=== PATIENT | female | born 1960 | race African-American/Black ===

== ENCOUNTER 2020-09-10 14:23 | Emergency (ER) | payer OTHER ==
[~2020-09-10] VITALS: Ht 157.5 cm; Wt 86.2 kg
[2020-09-10 15:20] VITALS: BP 170/94
[2020-09-10] MEDS ORDERED: TETRACAINE HCL 0.5% OPTH(EYE) SOLN 4ML ONE (15:38)
[2020-09-10] MEDS ORDERED: TETRACAINE HCL 0.5% OPTH(EYE) SOLN 4ML RIGHTEYE ONE ×2 (15:45)
== END 2020-09-10 16:58 | disposition home or self-care (01) ==
LOC: ER 14:23
DX: H10.31 Unspecified acute conjunctivitis, right eye (principal)

== ENCOUNTER 2023-04-25 10:54 | Inpatient (IN) | payer OTHER ==
[~2023-04-25] VITALS: Ht 157.5 cm; Wt 81.5 kg
[2023-04-25 11:17] LABS: Basophils # (auto) 0.1 10 ^3/uL (0-0.2); Basophils % (auto) 1.6 % (0.0-2.0); Eosinophils # (auto) 0.1 10 ^3/uL (0-0.8); Eosinophils % (auto) 0.8 % (0.0-7.0); Hematocrit 41.8 % (36.0-46.0); Hemoglobin 14.4 g/dL (12.2-16.2); Lymphocytes # (auto) 2.7 10 ^3/uL (0.4-5.4); Lymphocytes % (auto) 41.1 % (10.0-50.0); Mean Corpuscular Hemoglobin 30.9 pg (28.0-32.0); Mean Corpuscular Hgb Conc. 34.4 g/dL (32.0-36.0); Mean Corpuscular Volume 89.8 fL (80.0-100.0); Monocytes # (auto) 0.5 10 ^3/uL (0-1.3); Neutrophils # (auto) 3.3 10 ^3/uL (1.6-8.6); Neutrophils % (auto) 49.5 % (37.0-80.0); Nucleated Red Blood Cells % 0.3 %; Red Blood Cells 4.65 10^6/uL (4.0-5.20); Red Cell Distribution Width 15.3 % (11.8-14.3); White Blood Cell 6.7 10^3/uL (4.4-10.8)
[2023-04-25] MEDS ORDERED: TETRACAINE HCL 0.5% OPTH(EYE) SOLN 4ML EACHEYE ONE (11:30)
[2023-04-25] MEDS ORDERED: FLUORESCEIN SOD OPTH TEST STRIP EACHEYE ONE (11:30)
[2023-04-25 11:34] LABS: INR 0.91 (0.9-1.15)
[2023-04-25 11:39] LABS: Anion Gap 11 (5-15); Blood Alcohol < 3.0 mg/dL (0-5); Calcium 9.2 mg/dL (8.5-10.1); Carbon Dioxide 23 mmol/L (21-32); Chloride 110 mmol/L (98-107); Glucose 107 mg/dL (74-106); Lipase 95 U/L (73-393); Sodium 144 mmol/L (136-145)
[2023-04-25 11:45] LABS: Alanine Aminotransferase 18 U/L (13-56); Alkaline Phosphatase 69 U/L (45-117); Aspartate Aminotransferase 14 U/L (15-37); BUN/Creatinine Ratio 11.8 (10.0-20.0); Bilirubin, Total 0.5 mg/dL (0.2-1.0); Blood Urea Nitrogen 9 mg/dL (7-18); GFR African American 99 mL/min; GFR Non-African American 82 mL/min; Total Protein 7.6 g/dL (6.4-8.2)
[2023-04-25] MEDS ORDERED: hydrALAZINE HCL 20 MG/ML VL IV ONE ×2 (14:00→15:15)
[2023-04-25] MEDS ORDERED: IOHEXOL 350 MG/ML 100ML IJ ONE (15:08)
[2023-04-25 15:47] LABS: Urine Bacteria FEW /hpf (None Seen); Urine Blood TRACE /uL (Negative); Urine Specific Gravity 1.013 (1.001-1.035); Urine WBC 1 /hpf (0 - 5)
[2023-04-25 16:36] LABS: Alcohol, Urine < 3.0 mg/dL (0-10); Barbiturate Scree,Urine NEGATIVE (NEGATIVE); Benzodiazephine Screen, Urine NEGATIVE (NEGATIVE); Cannabinoid Screen, Urine POSITIVE (NEGATIVE); Cocaine Screen, Urine NEGATIVE (NEGATIVE)
[2023-04-25 16:44] LABS: Amphetamine Screen, Urine NEGATIVE (NEGATIVE); Opiate Scree,Urine NEGATIVE (NEGATIVE); Phencyclidine Screen, Urine NEGATIVE (NEGATIVE)
[2023-04-25] MEDS ORDERED: NITROGLYCERIN 0.4 MG SL TAB SL PRN (17:00)
[2023-04-25] MEDS ORDERED: MORPHINE SULFATE INJ 2 MG/ml SYRG IV PRN (17:00)
[2023-04-25] MEDS: LOSARTAN POTASSIUM 25 MG TAB PO SCH (17:30)
[2023-04-25] MEDS: amLODIPine BESYLATE 5 MG TAB PO SCH (17:30)
[2023-04-25] MEDS: ENOXAPARIN SOD 40 MG/0.4 ML SYRINGE SC SCH (17:31)
[2023-04-25] MEDS ORDERED: LORazepam 2MG/ML-1ML VIAL IV PRN (17:45)
[2023-04-25] MEDS: CIPROFLOXACIN 0.3%OPTH(EYE) SOL 5ML EACHEYE SCH ×2 (17:57→22:19)
[2023-04-25 18:35] LABS: Cholesterol 247 mg/dL (< 200); HDL Cholesterol 73 mg/dL (40-59); LDL Cholesterol 168 mg/dL (< 100); Triglycerides 55 mg/dL (< 150)
[2023-04-25] MEDS: ATORVASTATIN 20 MG TAB PO SCH (22:18)
[2023-04-25] MEDS: PHENYTOIN SODIUM 50 MG/ML 2ML VIAL IV SCH (22:19)
[2023-04-26] MEDS: CIPROFLOXACIN 0.3%OPTH(EYE) SOL 5ML EACHEYE SCH ×6 (02:10→22:13)
[2023-04-26 03:30] LABS: Urine Bacteria NONE SEEN /hpf (None Seen); Urine Blood Negative /uL (Negative); Urine WBC 1 /hpf (0 - 5)
[2023-04-26 03:35] LABS: Urine Specific Gravity > 1.050 (1.001-1.035)
[2023-04-26] MEDS: PHENYTOIN SODIUM 50 MG/ML 2ML VIAL IV SCH (05:37)
[2023-04-26 07:50] LABS: Albumin 3.8 g/dL (3.4-5.0); Potassium 3.6 mmol/L (3.5-5.1)
[2023-04-26 07:53] LABS: BUN/Creatinine Ratio 12.3 (10.0-20.0); Bilirubin, Total 0.9 mg/dL (0.2-1.0); Total Protein 7.8 g/dL (6.4-8.2)
[2023-04-26 08:43] LABS: Basophils # (auto) 0 10 ^3/uL (0-0.2); Basophils % (auto) 0.6 % (0.0-2.0); Eosinophils # (auto) 0 10 ^3/uL (0-0.8); Eosinophils % (auto) 0.5 % (0.0-7.0); Hemoglobin 14.2 g/dL (12.2-16.2); Lymphocytes # (auto) 2.6 10 ^3/uL (0.4-5.4); Mean Corpuscular Hemoglobin 30.2 pg (28.0-32.0); Mean Corpuscular Hgb Conc. 33.8 g/dL (32.0-36.0); Mean Corpuscular Volume 89.3 fL (80.0-100.0); Monocytes # (auto) 0.5 10 ^3/uL (0-1.3); Monocytes % (auto) 8.1 % (0.0-12.0); Neutrophils # (auto) 2.9 10 ^3/uL (1.6-8.6); Neutrophils % (auto) 47.8 % (37.0-80.0); Nucleated Red Blood Cells % 0.2 %; Red Cell Distribution Width 15.7 % (11.8-14.3)
[2023-04-26] MEDS ORDERED: LORazepam 2MG/ML-1ML VIAL IV PRN (09:30)
[2023-04-26] MEDS: ASPirin 81 mg TAB PO SCH (09:49)
[2023-04-26] MEDS: amLODIPine BESYLATE 5 MG TAB PO SCH (09:49)
[2023-04-26] MEDS: LOSARTAN POTASSIUM 25 MG TAB PO SCH (09:50)
[2023-04-26] MEDS: ENOXAPARIN SOD 40 MG/0.4 ML SYRINGE SC SCH (09:50)
[2023-04-26] MEDS: NICOTINE 7MG/24HR TOPICAL PATCH TD SCH (09:50)
[2023-04-26] MEDS ORDERED: AML5T PO (18:03)
[2023-04-26] MEDS ORDERED: LOS25T PO (18:03)
[2023-04-26] MEDS ORDERED: KEP500T PO (18:03)
[2023-04-26] MEDS ORDERED: ASPI-325 PO (18:03)
[2023-04-26] MEDS ORDERED: ATOR20TA50 PO (18:03)
[2023-04-26] MEDS ORDERED: ACETAMINOPHEN 325 MG TAB PO PRN (21:15)
[2023-04-26 22:00] VITALS: BP 126/73
[2023-04-26] MEDS: ATORVASTATIN 20 MG TAB PO SCH (22:11)
[2023-04-27] MEDS: CIPROFLOXACIN 0.3%OPTH(EYE) SOL 5ML EACHEYE SCH ×4 (01:16→14:00)
[2023-04-27 05:00] VITALS: BP 135/82
[2023-04-27] MEDS: ASPirin 81 mg TAB PO SCH (08:59)
[2023-04-27] MEDS: NICOTINE 7MG/24HR TOPICAL PATCH TD SCH (08:59)
[2023-04-27 09:00] VITALS: BP 149/82
[2023-04-27] MEDS: amLODIPine BESYLATE 5 MG TAB PO SCH (09:00)
[2023-04-27] MEDS: LOSARTAN POTASSIUM 25 MG TAB PO SCH (09:00)
[2023-04-27] MEDS: ENOXAPARIN SOD 40 MG/0.4 ML SYRINGE SC SCH (09:01)
[2023-04-27 12:33] VITALS: BP 129/66
[2023-04-27 16:20] VITALS: BP 129/66
[2023-04-27 16:54] VITALS: BP 137/78
== END 2023-04-27 19:00 | disposition home health service (06) | DRG 101 ==
LOC: ER 10:54 → TELE 17:10 → TELE-EAST 04-26 18:00
PROVIDERS: ADMIT Registered Nurse; ATTEND Internal Medicine
DX: G40.409 Other generalized epilepsy and epileptic syndromes, not intractable, without status epilepticus (principal); I16.0 Hypertensive urgency; H10.33 Unspecified acute conjunctivitis, bilateral; F17.210 Nicotine dependence, cigarettes, uncomplicated; I67.1 Cerebral aneurysm, nonruptured; Z79.899 Other long term (current) drug therapy; Z88.0 Allergy status to penicillin; Z82.49 Family history of ischemic heart disease and other diseases of the circulatory system; Z91.199 Patient's noncompliance with other medical treatment and regimen due to unspecified reason
CPT/HCPCS: 36415; 70450; 70481; 70496; 71045; 80053; 80061; 80185; 80307; 80320; 81001; 83036; 83690; 84443; 84484; 85025; 85610; 87040; 93005; 95819; 96374; 96376; G0378; J7060

== ENCOUNTER 2025-09-13 20:07 | Emergency (ER) | payer OTHER ==
[~2025-09-13] VITALS: Ht 157.5 cm; Wt 72.0 kg
[~2025-09-13 20:07] MED LIST: AML5T PO; ASPI-325 PO; ATOR20TA50 PO; KEP500T PO; LOS25T PO
[2025-09-13 20:59] VITALS: BP 170/92; PULSE 85; RESP 15; TEMP 98.4; O2SAT 98
--- NOTE | 2025-09-13 21:39 | DVH ---
CLINICAL HISTORY: FALL HEAD TRAUMA TECHNIQUE: Helical scanning was performed of the head from the skull base to the vertex. Multiplanar reconstructions were performed. This exam was performed according to our departmental dose optimizat ion program. Up-to-date CT equipment and radiation dose reduction techniques are utilized as appropri ate. CTDI 53 DLP 843 COMPARISON: CT ANGIO HEAD/NECK on DOS: 04/25/23, CT HEAD WITHOUT CONTRAST on DOS: 04/25/23 FINDINGS: There is no evidence for acute intracranial hemorrhage, acute ischemic changes, mass, mass effect, or extra-axial fluid collection. There is no hydrocephalus or midline shift. There is no effacement of the cerebral sulci and basal subarachnoid cisterns. The leavitt-white matter differentiation is well elodia ntained. 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 There is a sm all to moderate area of encephalomalacia involving the right frontal lobe, basal ganglia, anterolater al temporal lobe, and insular cortex The imaged paranasal sinuses are clear. IMPRESSION: NO ACUTE INTRACRANIAL ABNORMALITY SEEN.
--- NOTE | 2025-09-13 21:41 | DVH ---
CLINICAL HISTORY: FALL NECK PAIN TECHNIQUE: CT exam of the cervical spine was performed without intravenous contrast. This exam was pe rformed according to our departmental dose optimization program. Up-to-date CT equipment and radiatio n dose reduction techniques are utilized as appropriate. CTDI 14 DLP 324 COMPARISON: CT HEAD WITHOUT CONTRAST on DOS: 09/13/25, CT ANGIO HEAD/NECK on DOS: 04/25/23, CT HEAD WI THOUT CONTRAST on DOS: 04/25/23 FINDINGS: There is straightening of the normal cervical lordosis with 2 mm posterior C4-C5 subluxation. The babs tebral body heights are maintained. There is multilevel mild and moderate intervertebral disc space loss. The prevertebral space within normal limits. No acute fracture or dislocation is seen. There are posterior disc osteophyte complexes at C3-C4 and C4-C5. There is no high-grade central jose l or neural foraminal narrowing. IMPRESSION: No CT evidence for acute cervical spine fracture.
--- NOTE | 2025-09-14 11:26 | ED.PDOC ---
Rodrigue. trauma (HPI) HPI Comments 65-YEAR-OLD FEMALE PRESENTS TO THE ED WITH HISTORY OF STROKE VIA RUPTURED BRAIN ANEURYSM. PT STATES ABOUT 45 MINUTES PRIOR TO MAIN TRIAGE ARRIVAL SHE LOST BANCE GOING TO BR, NO LOC SMALL LACERATION BY LEFT EYE BROW. DOES STATE SOME DIZZINESS LEFT-SIDED EYEBROW PAIN AND NECK PAIN STATUS POST FALL. DENIES LOC, CHEST PAIN, SHORTNESS OF BREATH, NAUSEA, VOMITING, ABDOMINAL PAIN, OR DIARRHEA. 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 Chief Complaint: Fall Injury Time Seen by MD: 20:22 Reviewed notes: Nurses Notes, Medications, Allergies Allergies: Coded Allergies: Penicillins (Verified Allergy, Unknown, 09/10/20) Home Meds Active Scripts Levetiracetam (KEPPRA TABLET) 500 Mg Tb, 500 MG PO BID for 30 Days, #60 TAB Prov:SABRINA SILVER MD 04/26/23 Losartan Potassium (Losartan Potassium) 25 Mg Tab, 25 MG PO DAILY for 30 Days, #30 TAB Prov:SABRINA SILVER MD 04/26/23 Atorvastatin Calcium (ATORVASTATIN CALCIUM) 20 Mg Tab, 40 MG PO HS for 30 Days, #60 TAB Prov:SABRINA SILVER MD 04/26/23 Aspirin (Aspirin Low Dose) 81 Mg Tab, 81 MG PO DAILY for 30 Days, #30 TAB Prov:SABRINA SILVER MD 04/26/23 Amlodipine Besylate (NORVASC TABLET) 5 Mg Tb, 5 MG PO DAILY for 30 Days, #30 TAB Prov:SABRINA SILVER MD 04/26/23 Information Source: Patient Mode of Arrival: Ambulatory Past Medical History PAST MEDICAL HISTORY: HTN, Seizures Past Medical History (Other): RUPTURED BRAIN ANEURYSM STROKE Surgical History: 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 STORE FACILITY TECHNICIAN History Family History Family History: Unknown Social History Smoker: Cigarettes Alcohol: Occasionally Drugs: Marijuana Lives In: Home All Other Systems: Reviewed and Negative (SEEE HPI) Physical Exam General Appearance: No Apparent Distress, Normal HEENT: Normal ENT Inspection, Pharynx Normal, TMs Normal Neck: Limited Range of Motion, Tender Lateral (WITH RESISTANCE BILATERAL) Respiratory: Lungs Clear, No Respiratory Distress, Normal Breath Sounds Cardiovascular: No Edema, No JVD, No Murmur, No Gallop, Normal Peripheral Pulses, Regular Rate/Rhythm Breast Exam: Deferred Gastrointestinal: No Organomegaly, Non Tender, No Pulsatile Mass, Normal Bowel Sounds, Soft Genitalia: Deferred Pelvic: Deferred Rectal: Deferred Extremities: Normal range of motion, Non-tender, No pedal edema Musculoskeletal : Apperance: Normal Neurologic: Alert, No Motor Deficits, Normal Affect, Normal Mood, No Sensory Deficits Cerebellar Function: Normal Reflexes: NOT DONE Skin: Dry, Normal Color, Warm, Wounds (1.5 CM SUPERFICIAL LACERATION ACROSS TOP EYELID. BLEEDING CONTROLLED NO OBVIOUS FOREIGN BODY) Lymphatic: No Adenopathy Was a procedure done? Was a procedure done?: Yes Sedation Sedation?: No Informed consent obtained: Yes Laceration Repair : Location LEFT UPPER EYELID Length COMPLAINT 1.5 CM LACERATION Anesthetic: Nothing Laceration Repair Prep: Saline, by Irrigation Laceration Repair Wound Comple: epidermis/dermis repair Laceration Repair: Dermabond, Nothing Informed consent obtained: Yes (PATIENT TOLERATED WELL 0 BLOOD LOSS) Risks, benefits, and alternati: Yes Differential Diagnosis Multiple Trauma: Fractures, Spine Injury, Abrasions, Contusion, Hematoma, Laceration Neck Injury: Cervical Muscle Spasm, Cervical Sprain, Cervical Strain, Cervical Fracture X-Ray, Labs, Meds, VS Vital Signs Date Time Temp Pulse Resp B/P (MAP) Pulse Ox O2 Delivery O2 Flow Rate FiO2 09/13/25 20:59 85 15 98 Room Air* 0 21 09/13/25 20:59 98.4 85 15 170/92 (118) 98 98.4 09/13/25 20:10 99.7 86 18 174/102 86 99.7 X-Ray, Labs, Meds, VS Comment Neck shows no acute fractures subluxations or osseous lesions. Show some chronic spondylosis. CT brain shows no intracranial pathology no noted bleed. Advised to rest increase p.o. fluids with electrolytes. Light diet. Monitor for the next 24-48 hours avoid visual stimuli such as computer, or cell phone us e to avoid headaches. Avoid vigorous activity. Return to the ER for nonstop vomiting, numbness, weakness, slurred speech, lethargy, or any concerning symptoms. Pt indicates understanding and agrees with discharge plan of care Images Reviewed?: Images reviewed and evaluated by me Time of 1ST Reevaluation: 20:25 Reevaluation 1ST: Unchanged Time of 2ND Reevaluation: 22:05 Reevaluation 2ND: Improved Patient Education/Counseling: Diagnosis, Treatment, Need For Follow Up Family Education/Counseling: Diagnosis, Treatment, Need For Follow Up Departure 1 Departure Time of Disposition: 22:07 Impression: Primary Impression: Facial laceration Qualified Codes: S01.81XA - Laceration without foreign body of other part of head, initial encounter Additional Impressions: Closed head injury Qualified Codes: S09.90XA - Unspecified injury of head, initial encounter Whiplash injury to neck Qualified Codes: S13.4XXA - Sprain of ligaments of cervical spine, initial encounter Disposition: 01 HOME / SELF CARE / HOMELESS Condition: Stable Discharged With: Self Critical Care Note Critical Care Time?: No Stability Stability form required: GAVINO Verduzco Sep 13, 2025 21:06
== END 2025-09-13 22:22 | disposition home or self-care (01) ==
LOC: ER 20:07
DX: S01.81XA Laceration without foreign body of other part of head, initial encounter (principal); S13.4XXA Sprain of ligaments of cervical spine, initial encounter; S09.8XXA Other specified injuries of head, initial encounter; F12.90 Cannabis use, unspecified, uncomplicated; F10.90 Alcohol use, unspecified, uncomplicated; F17.210 Nicotine dependence, cigarettes, uncomplicated; I10 Essential (primary) hypertension; Z79.899 Other long term (current) drug therapy; Z98.51 Tubal ligation status; Z88.0 Allergy status to penicillin; Z86.73 Personal history of transient ischemic attack (TIA), and cerebral infarction without residual deficits; Z79.82 Long term (current) use of aspirin; W19.XXXA Unspecified fall, initial encounter; Y93.89 Activity, other specified; Y92.89 Other specified places as the place of occurrence of the external cause; Y99.8 Other external cause status
CPT/HCPCS: 12011; 70450; 72125